=== PATIENT | male | born 1985 | race Caucasian/White ===

== ENCOUNTER 2017-07-06 14:11 | Emergency (ER) | payer BC ==
[2017-07-06] MEDS: LIDOCAINE 1% (MDV) 10 ML INJ INFIL (14:53)
[2017-07-06] MEDS: DIPHTH/TET/ACEL PERTUSS (ADULT) 0.5 ML VIAL IM* (14:55)
== END 2017-07-06 16:16 | disposition home or self-care (01) ==
LOC: FTE 16:16
DX: S61.412A Laceration without foreign body of left hand, initial encounter (principal); W26.8XXA Contact with other sharp object(s), not elsewhere classified, initial encounter; Y92.009 Unspecified place in unspecified non-institutional (private) residence as the place of occurrence of the external cause
CPT/HCPCS: 12001; 90471; 90715; 99283-25

== ENCOUNTER 2017-07-08 12:17 | Emergency (ER) | payer BC | END 2017-07-08 12:51 | disposition home or self-care (01) | LOC: E/R 12:17 | DX: Z48.01 Encounter for change or removal of surgical wound dressing (principal) | CPT/HCPCS: 99281 ==

== ENCOUNTER 2017-07-14 07:02 | Emergency (ER) | payer BC | END 2017-07-14 07:27 | disposition home or self-care (01) | LOC: FTE 07:02 | DX: Z48.02 Encounter for removal of sutures (principal) | CPT/HCPCS: 99281 ==